=== PATIENT | male | born 1985 | race Caucasian/White ===

== ENCOUNTER 2017-12-02 13:37 | Emergency (ER) | payer OTHER ==
[~2017-12-02] VITALS: Ht 172.7 cm; Wt 118.0 kg
[~2017-12-02 13:37] MED LIST: LORTA5 PO
[2017-12-02 13:38] VITALS: BP 164/78; PULSE 140; RESP 20; TEMP 100.8; O2SAT 95
[2017-12-02] MEDS ORDERED: ACETAMINOPHEN 325 MG TAB PO ONE (13:45)
[2017-12-02 15:00] LABS: AUTOMATED NEUTROPHIL # 13.9 TH/MM3 (1.8-7.7); BASOPHIL # 0.1 TH/MM3 (0-0.2); BASOPHIL % 0.5 % (0.0-2.0); EOSINOPHIL # 0.1 TH/MM3 (0-0.4); EOSINOPHIL % 0.4 % (0.0-4.0); HEMATOCRIT 50.3 % (39.0-51.0); LYMPH % 3.5 % (9.0-44.0); LYMPHOCYTE # 0.5 TH/MM3 (1.0-4.8); MEAN CORPUSCULAR HEMOGLOBIN 28.8 PG (27.0-34.0); MEAN CORPUSCULAR HGB CONC 33.9 % (32.0-36.0); MONOCYTE # 0.8 TH/MM3 (0-0.9); NEUT % 90.6 % (16.0-70.0); PLATELET COUNT 322 TH/MM3 (150-450); RED BLOOD COUNT 5.92 MIL/MM3 (4.50-5.90); RED CELL DISTRIBUTION WIDTH 14.3 % (11.6-17.2); WHITE BLOOD COUNT 15.4 TH/MM3 (4.0-11.0)
[2017-12-02 15:17] LABS: ALBUMIN 4.4 GM/DL (3.4-5.0); ALT (GPT) 138 U/L (12-78); AST (GOT) 48 U/L (15-37); BICARBONATE 24.9 MEQ/L (21.0-32.0); BLOOD UREA NITROGEN 16 MG/DL (7-18); CALCIUM 8.9 MG/DL (8.5-10.1); CHLORIDE 103 MEQ/L (98-107); CREATININE 1.11 MG/DL (0.60-1.30); GLOMERULAR FILTRATION RATE 76 ML/MIN (>89); GLUCOSE,RANDOM 105 MG/DL (74-106); SODIUM (NA) 135 MEQ/L (136-145)
[2017-12-02 15:19] LABS: ALKALINE PHOSPHATASE 95 U/L (45-117); TOTAL BILIRUBIN ADULT 0.9 MG/DL (0.2-1.0)
[2017-12-02 15:31] VITALS: BP 141/82; PULSE 118; RESP 17; TEMP 100.9; O2SAT 100
[2017-12-02] MEDS ORDERED: SODIUM CHLOR 0.9% 1000 ML INJ 1,000 ML IV SCH (15:52)
--- NOTE | 2017-12-02 15:59 | PD ---
HPI Chief Complaint: Cold / Flu Symptoms Time Seen by Provider: 15:28 Travel History International Travel<30 days: No Contact w/Intl Traveler<30days: No Traveled to known affect area: No History of Present Illness HPI The patient is a 32-year-old male who presents to the emergency department for nausea, vomiting, and diarrhea. The patient's symptoms started at 8 AM. He also complains of low back pain and some lower extremity pain with myalgias. He notes intractable nausea with no oral intake today. He did receive Tylenol in triage for a fever. He does note fevers, denies any chills or sweats. The patient does have a history of diverticulitis with previous partial colon resection and ileostomy which was converted back by Dr. Watson. The patient does have a history of diverticulitis with intra-abdominal abscess and is concerned regards to possible diverticulitis, however, he denies any significant lower abdominal pain. He denies any dysuria. Symptoms are moderate. There are no current alleviating or exacerbating factors. 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) Musculoskeletal: No Neurologic: No Psychiatric: No Reproductive: No Respiratory: Yes (HX ASTHMA - (YOUTH)) Thyroid Disease: No Tetanus Vaccination: Unknown Influenza Vaccination: No Past Surgical History Abdominal Surgery: Yes (BOWEL RESECTION (DIVERTICULITIS); hernia repair) AICD: No Body Medical Devices: NONE Joint Replacement: No Pacemaker: No Other Surgery: Yes (ostomy takedown) Social History Alcohol Use: Yes (occ) Tobacco Use: Yes Substance Use: Yes (marijuana) Allergies-Medications (Allergen,Severity, Reaction): Coded Allergies: No Known Allergies (Unverified Adverse Reaction, Unknown, 12/02/17) Reported Meds & Prescriptions Reported Meds & Active Scripts Active Zofran Odt (Ondansetron Odt) 4 Mg Tab 4 Mg SL Q8HR PRN Hydrocodone/Acetaminophen 5 mg/325 mg 1 Tab Tab 2 Tab PO Q4H PRN Review of Systems Except as stated in HPI: all other systems reviewed are Neg General / Constitutional: Positive: Fever HENT: No: Congestion Cardiovascular: No: Chest Pain or Discomfort Respiratory: No: Cough, Shortness of Breath Gastrointestinal: Positive: Nausea, Vomiting, Diarrhea, No: Abdominal Pain Genitourinary: No: Dysuria Musculoskeletal: Positive: Myalgias Physical Exam Narrative GENERAL: Awake, alert, pleasant 32-year-old male who appears his stated age and is in no acute respiratory distress. SKIN: Focused skin assessment warm/dry. HEAD: Atraumatic. Normocephalic. EYES: Pupils equal and round. No scleral icterus. No injection or drainage. ENT: No nasal bleeding or discharge. Slightly dry mucous membranes. NECK: Trachea midline. No JVD. CARDIOVASCULAR: Regular, tachycardic with a heart rate of 110. RESPIRATORY: No accessory muscle use. Clear to auscultation. Breath sounds equal bilaterally. GASTROINTESTINAL: Abdomen soft, well-healed midline scar. No guarding or rigidity. MUSCULOSKELETAL: No obvious deformities. No clubbing. No cyanosis. No edema. NEUROLOGICAL: Awake and alert. No obvious cranial nerve deficits. Motor grossly within normal limits. Normal speech. PSYCHIATRIC: Appropriate mood and affect; insight and judgment normal. Data Data Last Documented VS Vital Signs Date Time Temp Pulse Resp B/P (MAP) Pulse Ox O2 Delivery O2 Flow Rate FiO2 12/02/17 18:47 98.4 82 14 128/68 (88) 96 Room Air Orders Orders Complete Blood Count With Diff (12/02/17 13:43) Comprehensive Metabolic Panel (12/02/17 13:43) Lipase (12/02/17 13:43) Electrocardiogram (12/02/17 ) Influenzae A/B Antigen (12/02/17 13:43) Acetaminophen (Tylenol) (12/02/17 13:45) Lactic Acid (12/02/17 15:52) Ct Abd/Pel W/O Iv Contrast (12/02/17 15:52) Iv Access Insert/Monitor (12/02/17 15:52) Ecg Monitoring (12/02/17 15:52) Oximetry (12/02/17 15:52) Morphine Inj (Morphine Inj) (12/02/17 16:00) Ondansetron Inj (Zofran Inj) (12/02/17 16:00) Sodium Chlor 0.9% 1000 Ml Inj (Ns 1000 M (12/02/17 15:52) Sodium Chloride 0.9% Flush (Ns Flush) (12/02/17 16:00) Ketorolac Inj (Toradol Inj) (12/02/17 16:00) Sodium Chlor 0.9% 1000 Ml Inj (Ns 1000 M (12/02/17 16:00) Lactic Acid (12/02/17 17:35) Ed Discharge Order (12/02/17 18:36) Labs Laboratory Tests Test 12/02/17 14:00 12/02/17 16:40 12/02/17 17:47 White Blood Count 15.4 TH/MM3 Red Blood Count 5.92 MIL/MM3 Hemoglobin 17.0 GM/DL Hematocrit 50.3 % Mean Corpuscular Volume 85.0 FL Mean Corpuscular Hemoglobin 28.8 PG Mean Corpuscular Hemoglobin Concent 33.9 % Red Cell Distribution Width 14.3 % Platelet Count 322 TH/MM3 Mean Platelet Volume 9.0 FL Neutrophils (%) (Auto) 90.6 % Lymphocytes (%) (Auto) 3.5 % Monocytes (%) (Auto) 5.0 % Eosinophils (%) (Auto) 0.4 % Basophils (%) (Auto) 0.5 % Neutrophils # (Auto) 13.9 TH/MM3 Lymphocytes # (Auto) 0.5 TH/MM3 Monocytes # (Auto) 0.8 TH/MM3 Eosinophils # (Auto) 0.1 TH/MM3 Basophils # (Auto) 0.1 TH/MM3 CBC Comment DIFF FINAL Differential Comment Blood Urea Nitrogen 16 MG/DL Creatinine 1.11 MG/DL Random Glucose 105 MG/DL Total Protein 9.0 GM/DL Albumin 4.4 GM/DL Calcium Level 8.9 MG/DL Alkaline Phosphatase 95 U/L Aspartate Amino Transf (AST/SGOT) 48 U/L Alanine Aminotransferase (ALT/SGPT) 138 U/L Total Bilirubin 0.9 MG/DL Sodium Level 135 MEQ/L Potassium Level 3.7 MEQ/L Chloride Level 103 MEQ/L Carbon Dioxide Level 24.9 MEQ/L Anion Gap 7 MEQ/L Estimat Glomerular Filtration Rate 76 ML/MIN Lipase 134 U/L Lactic Acid Level 2.2 mmol/L 1.0 mmol/L [facility] Medical Decision Making Medical Screen Exam Complete: Yes Emergency Medical Condition: Yes Medical Record Reviewed: Yes Interpretation(s) EKG reveals sinus tachycardia with a heart rate of 112. Short MI interval 118 ms. Nonspecific T wave changes with inverted T waves noted in lead V4, V5, V6. Laboratory Tests Test 12/02/17 14:00 White Blood Count 15.4 TH/MM3 Red Blood Count 5.92 MIL/MM3 Hemoglobin 17.0 GM/DL Hematocrit 50.3 % Mean Corpuscular Volume 85.0 FL Mean Corpuscular Hemoglobin 28.8 PG Mean Corpuscular Hemoglobin Concent 33.9 % Red Cell Distribution Width 14.3 % Platelet Count 322 TH/MM3 Mean Platelet Volume 9.0 FL Neutrophils (%) (Auto) 90.6 % Lymphocytes (%) (Auto) 3.5 % Monocytes (%) (Auto) 5.0 % Eosinophils (%) (Auto) 0.4 % Basophils (%) (Auto) 0.5 % Neutrophils # (Auto) 13.9 TH/MM3 Lymphocytes # (Auto) 0.5 TH/MM3 Monocytes # (Auto) 0.8 TH/MM3 Eosinophils # (Auto) 0.1 TH/MM3 Basophils # (Auto) 0.1 TH/MM3 CBC Comment DIFF FINAL Differential Comment Blood Urea Nitrogen 16 MG/DL Creatinine 1.11 MG/DL Random Glucose 105 MG/DL Total Protein 9.0 GM/DL Albumin 4.4 GM/DL Calcium Level 8.9 MG/DL Alkaline Phosphatase 95 U/L Aspartate Amino Transf (AST/SGOT) 48 U/L Alanine Aminotransferase (ALT/SGPT) 138 U/L Total Bilirubin 0.9 MG/DL Sodium Level 135 MEQ/L Potassium Level 3.7 MEQ/L Chloride Level 103 MEQ/L Carbon Dioxide Level 24.9 MEQ/L Anion Gap 7 MEQ/L Estimat Glomerular Filtration Rate 76 ML/MIN Lipase 134 U/L Differential Diagnosis Differential diagnosis includes gastroenteritis, enteritis, colitis, diverticulitis, influenza, viral syndrome, dehydration, electrolyte abnormality. Narrative Course Labs were initially drawn in triage. Upon evaluation in delta pod an IV was established and the patient was placed on cardiac telemetry monitoring and continuous pulse oximetry monitoring. White count was elevated at 15.4, lactic acid was sent to lab. Influenza screen was negative. CT of the abdomen and pelvis was performed to evaluate for possible diverticulitis. The patient received morphine, Zofran, Toradol, and 2 L of IV fluid. The patient was signed out to the oncoming physician at [address] of the abdomen and pelvis pending. If CT is negative, patient be discharged home. Diagnosis Primary Impression: Gastroenteritis Scripts Ondansetron Odt (Zofran Odt) 4 Mg Tab 4 MG SL Q8HR Y for Nausea/Vomiting, #20 TAB 0 Refills Prov: Krunal Miner MD 12/02/17 Condition: Stable Arpan Moreira MD Dec 02, 2017 15:59
[2017-12-02] MEDS ORDERED: MORPHINE SULFATE 4 MG/ML INJ IV PUSH ONE (16:00)
[2017-12-02] MEDS ORDERED: KETOROLAC TROMETHAMINE 30 MG/ML (IVP) VIAL IVP ONE (16:00)
[2017-12-02] MEDS ORDERED: ONDANSETRON HCL 4 MG/2 ML VIAL IVP ONE (16:00)
[2017-12-02] MEDS ORDERED: SODIUM CHLORIDE 0.9% FLUSH 10 ML FLUSH IV FLUSH PRN (16:00)
[2017-12-02] MEDS ORDERED: SODIUM CHLOR 0.9% 1000 ML INJ 1,000 ML IV ONE (16:00)
[2017-12-02 16:26] VITALS: BP 141/82; PULSE 112; RESP 19; TEMP 100.9; O2SAT 100
--- NOTE | 2017-12-02 17:19 | RADRPT ---
EXAM DATE/TIME: 12/02/2017 17:01 [facility] COMPARISON: No previous studies available for comparison. INDICATIONS : Vomiting and diarrhea with history of diverticular abscess with colon resection. ORAL CONTRAST: No oral contrast ingested. RADIATION DOSE: 12.19 CTDIvol (mGy) MEDICAL HISTORY : None SURGICAL HISTORY : Hernia repair, bowel resection ENCOUNTER: Initial ACUITY: 1 day PAIN SCALE: 0/10 LOCATION: anterior TECHNIQUE: Volumetric scanning of the abdomen and pelvis was performed. Using automated exposure control and ad justment of the mA and/or kV according to patient size, radiation dose was kept as low as reasonably achievable to obtain optimal diagnostic quality images. DICOM format image data is available electro nically for review and comparison. FINDINGS: LOWER LUNGS: The visualized lower lungs are clear. LIVER: Homogeneous density without lesion. There is no dilation of the biliary tree. No calcified gallston es. SPLEEN: Normal size without lesion. PANCREAS: Within normal limits. KIDNEYS: Normal in size and shape. There is no mass, stone, or hydronephrosis. ADRENAL GLANDS: Within normal limits. VASCULAR: There is no aortic aneurysm. BOWEL/MESENTERY: The stomach, small bowel, and colon demonstrate no acute abnormality. There is no free intraperitone al air or fluid. Previous colonic surgery ABDOMINAL WALL: Within normal limits. RETROPERITONEUM: There is no lymphadenopathy. BLADDER: No wall thickening or mass. REPRODUCTIVE: Within normal limits. INGUINAL: There is no lymphadenopathy or hernia. MUSCULOSKELETAL: Within normal limits for patient age. CONCLUSION: Negative for acute process. I do not see evidence for an inflammatory process. Mild diverticular di sease remaining descending colon. Mark Gutierrez MD FACR on December 02, 2017 at 17:16 Board Certified Radiologist. This report was verified electronically.
[2017-12-02] MEDS ORDERED: ZOFR4TAB3 SL (18:36)
--- NOTE | 2017-12-02 18:36 | PD ---
Data Data Last Documented VS Vital Signs Date Time Temp Pulse Resp B/P (MAP) Pulse Ox O2 Delivery O2 Flow Rate FiO2 12/02/17 16:26 100.9 112 19 141/82 (101) 100 Room Air Orders Orders Complete Blood Count With Diff (12/02/17 13:43) Comprehensive Metabolic Panel (12/02/17 13:43) Lipase (12/02/17 13:43) Electrocardiogram (12/02/17 ) Influenzae A/B Antigen (12/02/17 13:43) Acetaminophen (Tylenol) (12/02/17 13:45) Lactic Acid (12/02/17 15:52) Ct Abd/Pel W/O Iv Contrast (12/02/17 15:52) Iv Access Insert/Monitor (12/02/17 15:52) Ecg Monitoring (12/02/17 15:52) Oximetry (12/02/17 15:52) Morphine Inj (Morphine Inj) (12/02/17 16:00) Ondansetron Inj (Zofran Inj) (12/02/17 16:00) Sodium Chlor 0.9% 1000 Ml Inj (Ns 1000 M (12/02/17 15:52) Sodium Chloride 0.9% Flush (Ns Flush) (12/02/17 16:00) Ketorolac Inj (Toradol Inj) (12/02/17 16:00) Sodium Chlor 0.9% 1000 Ml Inj (Ns 1000 M (12/02/17 16:00) Lactic Acid (12/02/17 17:35) Labs Laboratory Tests Test 12/02/17 14:00 12/02/17 16:40 12/02/17 17:47 White Blood Count 15.4 TH/MM3 Red Blood Count 5.92 MIL/MM3 Hemoglobin 17.0 GM/DL Hematocrit 50.3 % Mean Corpuscular Volume 85.0 FL Mean Corpuscular Hemoglobin 28.8 PG Mean Corpuscular Hemoglobin Concent 33.9 % Red Cell Distribution Width 14.3 % Platelet Count 322 TH/MM3 Mean Platelet Volume 9.0 FL Neutrophils (%) (Auto) 90.6 % Lymphocytes (%) (Auto) 3.5 % Monocytes (%) (Auto) 5.0 % Eosinophils (%) (Auto) 0.4 % Basophils (%) (Auto) 0.5 % Neutrophils # (Auto) 13.9 TH/MM3 Lymphocytes # (Auto) 0.5 TH/MM3 Monocytes # (Auto) 0.8 TH/MM3 Eosinophils # (Auto) 0.1 TH/MM3 Basophils # (Auto) 0.1 TH/MM3 CBC Comment DIFF FINAL Differential Comment Blood Urea Nitrogen 16 MG/DL Creatinine 1.11 MG/DL Random Glucose 105 MG/DL Total Protein 9.0 GM/DL Albumin 4.4 GM/DL Calcium Level 8.9 MG/DL Alkaline Phosphatase 95 U/L Aspartate Amino Transf (AST/SGOT) 48 U/L Alanine Aminotransferase (ALT/SGPT) 138 U/L Total Bilirubin 0.9 MG/DL Sodium Level 135 MEQ/L Potassium Level 3.7 MEQ/L Chloride Level 103 MEQ/L Carbon Dioxide Level 24.9 MEQ/L Anion Gap 7 MEQ/L Estimat Glomerular Filtration Rate 76 ML/MIN Lipase 134 U/L Lactic Acid Level 2.2 mmol/L 1.0 mmol/L [facility] Supervised Visit with DAVE: No Narrative Course The patient was initially evaluated by the previous provider and sent out to me at the beginning of my shift pending labs, CT abdomen pelvis, and disposition. See his note for further details. Briefly this is a 32-year-old male with history of diverticulitis that required colectomy several years ago, here for evaluation of nausea, vomiting, diarrhea, and abdominal pain. Symptoms started this morning. The patient was also noted to have a fever. He denies cough or upper respiratory symptoms. The patient was provided morphine, Zofran, 2 L normal saline IV, IV Toradol, and Tylenol by the previous provider. Vital signs reviewed and the patient was initially tachycardic with a temp of 100.8 and a heart rate of 140. After 2 L normal saline IV the patient's heart rate improved to 79. CBC: WBC 15.4, hemoglobin 17 , hematocrit 50.3, platelets 322, neutrophils 90%. CMP is remarkable for AST 40 , ALT 138, otherwise unremarkable. Influenza is negative. Lactic acid is 2.2, and repeat is 1.0 after 2 L of normal saline IV. The patient denies recent travel. On my exam he is resting comfortably and states he feels much improved. CT abdomen pelvis is negative for an acute process with mild diverticular disease remaining in the descending colon. The patient and the patient's significant other were made aware of all findings. He is likely suffering from a viral gastroenteritis. He is stable for discharge home with outpatient follow-up with his primary care physician this week. I will give him a perception for Zofran and advised that he stay hydrated with plenty of fluids and to keep his fever under control with Tylenol and ibuprofen. He was informed on when to return to the emergency department. He verbalizes understanding and agreement with plan. Diagnosis Primary Impression: Gastroenteritis Referrals: Primary Care Physician 3 days Additional Instruction: Follow-up with your primary care physician this week. Stay hydrated with plenty of fluids. Keep fever under control with Tylenol and ibuprofen. Scripts Ondansetron Odt (Zofran Odt) 4 Mg Tab 4 MG SL Q8HR Y for Nausea/Vomiting, #20 TAB 0 Refills Prov: Krunal Miner MD 12/02/17 Disposition: 01 DISCHARGE HOME Condition: Stable Krunal Miner MD Dec 02, 2017 18:36
[2017-12-02 18:37] VITALS: PULSE 79
[2017-12-02 18:46] VITALS: BP 128/68
[2017-12-02 18:47] VITALS: BP 128/68; PULSE 82; RESP 14; TEMP 98.4; O2SAT 96
--- NOTE | 2017-12-03 20:19 | EKG ---
Date Performed: 12/02/2017 Time Performed: 15:23:40 PTAGE: 32 years EKG: SINUS TACHYCARDIA WITH SHORT NM INTERVAL NONSPECIFIC T-WAVE ABNORMALITY ABNORMAL RHYTHM ECG NO PREVIOUS TRACING DOCTOR: Dc Galvin Interpretating Date/Time 12/03/2017 20:15:16
== END 2017-12-02 18:48 | disposition home or self-care (01) ==
LOC: NEPD 13:37
DX: K52.9 Noninfective gastroenteritis and colitis, unspecified (principal); R94.31 Abnormal electrocardiogram [ECG] [EKG]; K57.30 Diverticulosis of large intestine without perforation or abscess without bleeding
CPT/HCPCS: 74176; 80053; 83605; 83690; 85025; 87804; 93005; 96361; 96374; 96375; 99285; J1885; J2270; J2405; J7030